=== PATIENT | female | born 1955 | race Caucasian/White ===

== ENCOUNTER 2018-05-09 16:19 | Emergency (ER) | payer BC ==
[2018-05-09 16:42] VITALS: BP 154/85
[2018-05-09] MEDS ORDERED: HYDROmorphone 1 MG/ML Syringe IVPUSH ONE ×2 (17:05→18:15)
[2018-05-09] MEDS ORDERED: Metoclopramide 10 MG/2 ML SDV IVPUSH ONE (17:06)
--- NOTE | 2018-05-09 17:07 | EDM.PDOC ---
ED HPI GENERAL MEDICAL PROBLEM - General Chief Complaint: Chest Pain Stated Complaint: CHEST PAIN Time Seen by Provider: 05/09/18 16:48 Source of Information: Reports: Patient, Family (son) History Limitations: Reports: No Limitations - History of Present Illness INITIAL COMMENTS - FREE TEXT/NARRATIVE: 63-year-old female presents to the ED with complaints of left precordial chest pain which is fairly sharp and stabbing but also has a pressure component. It seems to start just below her left breast and radiated up into her left neck as well as into her left shoulder and down her left arm. It is felt slightly in the upper aspect of her scapula as well. Patient reports that she's been having these pains off and on for 2 months but it's become much more severe over the last 48 hours. Denies any falls or injuries to her chest wall. She is a smoker 2 and half packs a day and is currently down to 1 pack per day. She does have a productive cough with occasional brownish sputum production. No fever or chills. It does hurt to breathe deeply at times. Denies any gastroesophageal reflux symptoms. Denies any burping or belching. Pain is sometimes worse if she lies on the left side. No known heart disease. Risk factors are that of smoking for greater than 40 years. Hypertension and hypercholesterolemia. Onset: Other (Has had left precordial chest pains off and on for 2 months worse the last 2 days and particularly this afternoon) Onset Date: 05/09/18 Duration: Hour(s):, Getting Worse Location: Reports: Neck ( as described in history of present illness rating up into the left lateral neck in the distribution of the sternocleidomastoid muscle ), Chest (Left precordial chest), Upper Extremity, Left Quality: Reports: Ache (Left shoulder), Pressure, Sharp, Stabbing Severity: Moderate Improves with: Reports: None (8 out of 10) Worsens with: Reports: Other (Certain movements make it worse deep breathing and coughing make it worse.) Context: Denies: Activity, Exercise, Lifting, Sick Contact, Trauma, Other Associated Symptoms: Reports: Chest Pain, Cough (Chronically as she is a cigarette smoker), cough w sputum, Shortness of Breath. Denies: No Other Symptoms (See history of present illness), Confusion, Diaphoresis, Fever/Chills , Headaches, Loss of Appetite, Nausea/Vomiting, Rash (Chronically), Seizure, Weakness Treatments MANAGER OF DEVELOPMENT: Reports: Other (see below) (None.) Left Chest Pain Score (Numeric/FACES): 5 - Related Data Allergies Allergy/AdvReac Type Severity Reaction Status Date / Time codeine Allergy Respiratory Verified 05/09/18 16:28 Distress Home Meds: Home Meds Albuterol [Proventil Neb Soln] 0.63 mg NEB Q4HRRT PRN 06/11/15 [History] Gabapentin [Neurontin] 600 mg PO TID 04/29/17 [History] traZODone 200 mg PO BEDTIME 04/29/17 [History] Acetaminophen [Tylenol] 650 mg PO Q6H PRN tablet 05/03/17 [Rx] Albuterol/Ipratropium [DuoNeb 3.0-0.5 MG/3 ML] 3 ml NEB QIDRT #1 box 05/03/17 [ Rx] DULoxetine [Cymbalta] 90 mg PO BEDTIME 05/09/18 [History] Diclofenac Sodium [Voltaren] 50 mg PO TID #24 tab.ec 05/09/18 [Rx] HYDROmorphone [Dilaudid] 10 mg PO DAILY PRN 05/09/18 [History] Omeprazole Magnesium [Prilosec Otc] 20 mg PO DAILY 05/09/18 [History] oxyCODONE HCl/Acetaminophen [Percocet 5-325 mg Tablet] 1 each PO Q4H PRN #12 tablet 05/09/18 [Rx] predniSONE [Deltasone] 20 mg PO ASDIRECTED #15 tablet 05/09/18 [Rx] Past Medical History HEENT History: Reports: Impaired Vision Other HEENT History: pt wears glasses Cardiovascular History: Reports: High Cholesterol Respiratory History: Reports: COPD (Not on oxygen), Pneumonia, Recurrent Gastrointestinal History: Reports: Cholelithiasis Genitourinary History: Reports: Diabetic Nephropathy 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 hand surgery Social & Family History - Family History Family Medical History: Noncontributory - Tobacco Use Smoking Status *Q: Current Every Day Smoker Years of Tobacco use: 45 Packs/Tins Daily: 1 - Caffeine Use Caffeine Use: Reports: Soda Other Caffeine Use: 3-4 diet pepsi's per day - Recreational Drug Use Recreational Drug Use: No - Living Situation & Occupation Living situation: Reports: Occupation: Employed ED ROS GENERAL - Review of Systems Review Of Systems: See Below Constitutional: Denies: Fever, Chills, Malaise, Weakness, Decreased Appetite HEENT: Reports: Glasses Respiratory: Reports: Shortness of Breath, Wheezing, Cough, Sputum. Denies: Pleuritic Chest Pain (Occasional wheezing. Has known COPD from cigarette smoking for greater than 40 years.), Hemoptysis (Enoc sputum usually.) Cardiovascular: Reports: Chest Pain (Left precordial chest pain heaviness with a sharp stabbing component currently rating up to the left side of her neck and into her left shoulder.), Blood Pressure Problem, Dyspnea on Exertion ( Chronically). Denies: Claudication, Edema, Lightheadedness, Orthopnea, Palpitations Endocrine: Reports: No Symptoms GI/Abdominal: Reports: Nausea (Nausea without any vomiting) : Reports: Frequency, Incontinence (Urge and stress components) Musculoskeletal: Reports: Joint Pain (Knees hips lower back and neck and shoulders at times from arthritic changes and rotator cuff disease in her shoulders) Skin: Reports: No Symptoms Neurological: Reports: Other (Peripheral neuropathy. Is on gabapentin) Psychiatric: Reports: Depression ED EXAM, GENERAL - Physical Exam Exam: See Below Exam Limited By: No Limitations General Appearance: Alert, Moderate Distress, Other (Smell strongly of cigarette smoke.) Eye Exam: Bilateral Eye: Normal Inspection Throat/Mouth: Normal Inspection, Normal Lips, Normal Oropharynx Head: Atraumatic, Normocephalic Neck: Normal Inspection, Full Range of Motion, Tender Lateral. No: Carotid Bruit, Lymphadenopathy (L) (Tender bilateral neck on palpation but range of motion is full), Lymphadenopathy (R) Respiratory/Chest: No Respiratory Distress, Decreased Breath Sounds, Wheezing ( Decreased breath sounds to the lower 25% of lung mobley bilaterally.). No: Lungs Clear, Normal Breath Sounds, Rales, Rhonchi ( Initial expiratory wheeze.) Cardiovascular: Regular Rate, Rhythm, No Edema, No Gallop, No Murmur. No: Normal Peripheral Pulses Peripheral Pulses: 1+: Posterior Tibial (L), Posterior Tibial (R), Dorsalis Pedis (L), Dorsalis Pedis (R), 2+: Carotid (L), Carotid (R) GI/Abdominal: Normal Bowel Sounds, Soft, Non-Tender, No Abnormal Bruit, No Mass , Pelvis Stable, Other (She has had evidence of the) Back Exam: Normal Inspection, Full Range of Motion. No: CVA Tenderness (L), CVA Tenderness (R) Extremities: Normal Inspection, No Pedal Edema, Other (Evidence of osteophytic changes in both knees and hips.) Neurological: Alert, Oriented, CN II-XII Intact, Normal Cognition Psychiatric: Anxious Skin Exam: Warm, Dry, Intact, No Rash, Other (Slightly grayish in color.) EKG INTERPRETATION EKG Date: 05/09/18 Time: 16:24 Rhythm: NSR Rate (Beats/Min): 80 [place]: Normal P-Wave: Enlarged (Consider left atrial hypertrophy) QRS: Other (RSR prime wave B1 normal variant.) ST-T: Other (T-wave is inverted in V1 to V3 with a) QT: Prolonged EKG Interpretation Comments: Abnormal ECG Course - Vital Signs Last Recorded V/S: Last Vital Signs Temp 36.4 C 05/09/18 16:23 Pulse 77 05/09/18 16:23 Resp 15 05/09/18 16:23 BP 154/85 H 05/09/18 16:23 Pulse Ox 98 05/09/18 16:23 - Orders/Labs/Meds Orders: Active Orders 24 hr Category Date Time Status EKG 12 Lead [EKG Documentation Completion] [RC] STAT Care 05/09/18 17:08 Active Chest 1V Frontal [CR] Stat Exams 05/09/18 17:03 Taken Labs: Laboratory Tests 05/09/18 05/09/18 05/09/18 Range/Units 16:30 16:30 16:30 WBC 7.27 (3.98-10.04) K/mm3 RBC 4.72 (3.98-5.22) M/mm3 Hgb 14.8 (11.2-15.7) gm/L Hct 43.9 (34.1-44.9) % MCV 93.0 (79.4-94.8) fl MCH 31.4 (25.6-32.2) pg MCHC 33.7 (32.2-35.5) g/dl RDW Std Deviation 47.6 H (36.4-46.3) fL Plt Count 256 (182-369) K/mm3 MPV 9.2 L (9.4-12.3) fl Neutrophils % (Manual) 69 H (40-60) % Band Neutrophils % 0 (0-10) % Lymphocytes % (Manual) 29 (20-40) % Atypical Lymphs % 0 % Monocytes % (Manual) 1 L (2-10) % Eosinophils % (Manual) 1 (0.7-5.8) % Basophils % (Manual) 0 L (0.1-1.2) Platelet Estimate Adequate RBC Morph Comment Normal ESR (0-20) mm/hr PT 9.9 (9.5-12.1) SECONDS INR < 0.93 APTT 27 (24-31) SECONDS Sodium 142 (136-145) mEq/L Potassium 3.4 L (3.5-5.1) mEq/L Chloride 106 (98-107) mEq/L Carbon Dioxide 27 (21-32) mEq/L Anion Gap 12.4 (5-15) BUN 12 (7-18) mg/dL Creatinine 0.9 (0.55-1.02) mg/dL Est Cr Clr Drug Dosing 54.30 mL/min Estimated GFR (MDRD) > 60 (>60) mL/min BUN/Creatinine Ratio 13.3 L (14-18) Glucose 113 (80-115) mg/dL Calcium 9.1 (8.5-10.1) mg/dL Magnesium 2.3 (1.8-2.4) mg/dl Total Bilirubin 0.3 (0.2-1.0) mg/dL AST 13 L (15-37) U/L ALT 18 (14-59) U/L Alkaline Phosphatase 111 (46-116) U/L CK-MB (CK-2) 0.5 (0-3.6) ng/ml Troponin I < 0.017 (0.00-0.056) ng/mL C-Reactive Protein < 0.2 (<1.0) mg/dL NT-Pro-B Natriuret Pep (0-125) pg/mL Total Protein 7.0 (6.4-8.2) g/dl Albumin 3.3 L (3.4-5.0) g/dl Globulin 3.7 gm/dL Albumin/Globulin Ratio 0.9 L (1-2) 05/09/18 05/09/18 Range/Units 16:30 16:30 WBC (3.98-10.04) K/mm3 RBC (3.98-5.22) M/mm3 Hgb (11.2-15.7) gm/L Hct (34.1-44.9) % MCV (79.4-94.8) fl MCH (25.6-32.2) pg MCHC (32.2-35.5) g/dl RDW Std Deviation (36.4-46.3) fL Plt Count (182-369) K/mm3 MPV (9.4-12.3) fl Neutrophils % (Manual) (40-60) % Band Neutrophils % (0-10) % Lymphocytes % (Manual) (20-40) % Atypical Lymphs % % Monocytes % (Manual) (2-10) % Eosinophils % (Manual) (0.7-5.8) % Basophils % (Manual) (0.1-1.2) Platelet Estimate RBC Morph Comment ESR 25 H (0-20) mm/hr PT (9.5-12.1) SECONDS INR APTT (24-31) SECONDS Sodium (136-145) mEq/L Potassium (3.5-5.1) mEq/L Chloride (98-107) mEq/L Carbon Dioxide (21-32) mEq/L Anion Gap (5-15) BUN (7-18) mg/dL Creatinine (0.55-1.02) mg/dL Est Cr Clr Drug Dosing mL/min Estimated GFR (MDRD) (>60) mL/min BUN/Creatinine Ratio (14-18) Glucose (80-115) mg/dL Calcium (8.5-10.1) mg/dL Magnesium (1.8-2.4) mg/dl Total Bilirubin (0.2-1.0) mg/dL AST (15-37) U/L ALT (14-59) U/L Alkaline Phosphatase (46-116) U/L CK-MB (CK-2) (0-3.6) ng/ml Troponin I (0.00-0.056) ng/mL C-Reactive Protein (<1.0) mg/dL NT-Pro-B Natriuret Pep 208 H (0-125) pg/mL Total Protein (6.4-8.2) g/dl Albumin (3.4-5.0) g/dl Globulin gm/dL Albumin/Globulin Ratio (1-2) Meds: Medications Discontinued Medications Generic Name Dose Route Start Last Admin Trade Name Freq PRN Reason Stop Dose Admin Hydromorphone HCl 0.5 mg 05/09/18 17:05 05/09/18 17:21 Dilaudid IVPUSH 05/09/18 17:06 0.5 mg ONETIME ONE Administration Hydromorphone HCl 0.5 mg 05/09/18 18:15 05/09/18 18:21 Dilaudid IVPUSH 05/09/18 18:16 0.5 mg ONETIME ONE Administration Dextrose/Sodium Chloride 1,000 mls @ 500 mls/hr 05/09/18 17:15 05/09/18 17:21 Dextrose 5%-Normal Saline IV 500 mls/hr ASDIRECTED MARYLOU Administration Ketorolac Tromethamine 30 mg 05/09/18 17:15 05/09/18 17:21 Toradol IVPUSH 30 mg ONETIME MARYLOU Administration Metoclopramide HCl 5 mg 05/09/18 17:06 05/09/18 17:21 Reglan IVPUSH 05/09/18 17:07 5 mg ONETIME ONE Administration - Radiology Interpretation Free Text/Narrative:: 63-year-old female presents to the ED with diffuse anterior left chest pain off -and-on for 2 months but much worse the last 48 hours and particularly today. Pain is described as a pressure sensation as well as a sharp stabbing component. It is worsened slightly by deep breathing and coughing. Patient has multiple risk factors for coronary disease with cigarette smoking and obesity hypertension and elevated cholesterol. However on examination she has excruciating pain to palpation midclavicular line of ribs 2-6 particularly fourth and fifth ribs. She'll therefore appears to have a periostitis likely due to osteoporosis. Slight pain on the right side as well ribs 3,4 and 5. ECG is showing sinus rhythm at 80 per minute with no signs of ischemia. There is nonspecific T-wave inversion in V1 and V3 leads only. Pain clinically is chest wall in origin. Plan 1 view chest x-ray. Routine labs to include cardiac markers. She will be given Toradol 30 mg IV with Dilaudid 0.5 mg IV and Reglan 5 mg IV for acute pain relief. - Re-Assessments/Exams Free Text/Narrative Re-Assessment/Exam: 05/09/18 18:16 patient is still having some left precordial chest pain. Will repeat Dilaudid 0.5 mg IV for pain relief. The chest x-ray reveals mildly hyperinflated lung mobley. There is some mild fibrosis in both lower lung mobley but no accentuation of the vascular pattern. Cardiac silhouette is within normal limits. 05/09/18 18:20 Labs reveal a normal white count at 7.27. Differential is 69% neutrophils no bands. Hemoglobin is 14.8 with hematocrit of 43.9. Platelet count is 256,000. PT is 9.9 with an INR of less than 0.93. PTT is 27. Sodium is 142. Potassium slightly low at 3.4. Chloride is 106 with a bicarbonate of 27. Anion gap is 12.4. GFR is greater than 60. Glucose is 113 calcium is 9.1. Magnesium 2.3 with a bilirubin of 0.3. Liver function is otherwise normal. CK- MB fraction is 0.5 with a troponin I of less than 0.017. C-reactive protein is less than 0.2. BNP is 208. Total protein is 7.0. Albumin fraction 3.3 slightly low. 05/09/18 19:00: Patient was reassured that her chest pain is noncardiac in origin and clearly is chest wall in origin. Pain is manageable at this point time. I`m going to her home on Voltaren 50 mg 3 times daily for 8 days and prednisone 20 mg twice a day for 5 days and then once daily in the morning for another 5 days to reduce pain and inflammation. I will also send her home with a few Percocet tabs 5/325 mg one tablet every 4-6 hours necessary for pain relief 12 tabs. She appears to be quite osteopenic. I've suggested that she have a DEXA scan ordered by her primary care physician. Perhaps biphosphonate addition to treatment plan may help alleviate some of her chest wall pain. Departure - Departure Time of Disposition: 19:13 Disposition: Home, Self-Care 01 Reason for Transfer *Q: Other Condition: Fair Clinical Impression: Non-cardiac chest pain, Anterior chest wall pain Osteopenia Qualifiers: Osteopenia location: unspecified Qualified Code(s): M85.80 - Other specified disorders of bone density and structure, unspecified site Prescriptions: Diclofenac Sodium [Voltaren] 50 mg PO TID #24 tab.ec oxyCODONE HCl/Acetaminophen [Percocet 5-325 mg Tablet] 1 each PO Q4H PRN #12 tablet PRN Reason: pain relief. predniSONE [Deltasone] 20 mg PO ASDIRECTED #15 tablet Instructions: Chest Wall Pain, [id number], Nonspecific Chest Pain, Easy-to- Read Referrals: Alon Stewart MD [Primary Care Provider] - Forms: ED Department Discharge Additional Instructions: Evaluation the emergency room today in regards to increased left anterior chest pain is rating up into the left side of your neck and down the left shoulder and arm. Pain is been present off and on for 2 months but much worse last 2 days and particularly today. Finacea reveals marked inflammation of the lining around the ribs from ribs 2-6 on the left side of your chest in the midclavicular line. There is milder pain on the right side also in ribs 2, 3 and 4 and 5. Chest x-ray reveals no abnormalities of the underlying lungs and heart is shadow is normal. All the lab tests were negative for any heart related illness and no blood clot in the lung. Pain is thus not related to heart. Pain is coming from the chest wall itself. This most often occurs when the calcium is been removed from the ribs as part of osteoporosis leaving the lining of the rib called the periosteum supposed. It contains all the nerve endings and is the source of your current pain. Minutes to try and reduce the inflammation in the ribs. In the ED were treated with intravenous Dilaudid 0.5 mg with Toradol 30 mg IV. Treatment at home is to take Deltasone 20 mg with breakfast and supper for 5 days starting tomorrow morning and then 1 tablet in the morning only for another 5 days. Second anti-inflammatories called Voltaren 50 mg 3 times daily for the next 8 days to reduce pain and inflammation. Kinsey tomorrow morning with breakfast. Pain medication is Percocet tablets 5/ 325 mg one tablet every 4 hours as needed for pain relief until the anti- inflammatories begin to work well which is usually 1-1/2-2 days. Suggest follow- up with your primary care physician in 10 days or so and have a workup for osteopenia/osteoporosis carried out. - My Orders Last 24 Hours: My Active Orders 05/09/18 17:03 Chest 1V Frontal [CR] Stat 05/09/18 17:08 EKG 12 Lead [EKG Documentation Completion] [RC] STAT - Assessment/Plan Last 24 Hours: My Active Orders 05/09/18 17:03 Chest 1V Frontal [CR] Stat 05/09/18 17:08 EKG 12 Lead [EKG Documentation Completion] [RC] STAT
[2018-05-09] MEDS ORDERED: Ketorolac 30 MG/ML SDV IVPUSH SCH (17:15)
[2018-05-09] MEDS ORDERED: Dextrose 5%-0.9% NaCl 1,000 ML IV SCH (17:15)
--- NOTE | 2018-05-10 06:47 | CR ---
Chest: Portable view of the chest was obtained. Comparison: Prior chest x-ray of 05/02/17. Heart size at the upper limits of normal. Upper mediastinum is normal. Electric stimulating wires are seen within the cervical spine. Lungs are clear with no acute parenchymal change. Patient: 1. Findings as noted above. Nothing acute is appreciated on portable chest x-ray. Diagnostic code #2
== END 2018-05-09 19:27 | disposition home or self-care (01) ==
LOC: JD.ED 16:19
DX: R07.2 Precordial pain (principal); M85.80 Other specified disorders of bone density and structure, unspecified site; E78.00 Pure hypercholesterolemia, unspecified; J44.9 Chronic obstructive pulmonary disease, unspecified; E11.21 Type 2 diabetes mellitus with diabetic nephropathy; F32.9 Major depressive disorder, single episode, unspecified; F17.210 Nicotine dependence, cigarettes, uncomplicated; Z88.5 Allergy status to narcotic agent; Z79.899 Other long term (current) drug therapy
CPT/HCPCS: 36415; 71045; 80053; 82553; 83735; 83880; 84484; 85007; 85027; 85610; 85652; 85730; 86140; 93005; 96361; 96374; 96375; 96376; 99285; J1170; J1885; J2765; J7042; 93010

== ENCOUNTER 2018-09-26 14:52 | Emergency (ER) | payer BC ==
[2018-09-26 15:07] VITALS: BP 150/78
[2018-09-26] MEDS ORDERED: Sodium Chloride 0.9% 10 ML Syringe FLUSH PRN (15:12)
--- NOTE | 2018-09-26 15:40 | CT ---
Head CT Technique: Multiple axial sections through the brain were obtained. Intravenous contrast was not utilized. Comparison: No prior intracranial imaging. Findings: Ventricles along with basal cisterns and sulci over the convexities appear within normal limits for the patient's age. No abnormal parenchymal densities are seen. No evidence of intracranial hemorrhage. No midline shift or mass effect is seen. 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 This is believed to be benign and therefore incidental. Bone window settings were reviewed which shows no acute calvarial abnormality. Slight mucosal thickening is noted within the left ethmoid sinus and right maxillary sinus which is believed to be incidental. Mastoid sinuses are clear. Impression: 1. Minimal sinus findings which are believed to be incidental. Rim calcified pineal cyst also felt to be incidental. 2. Nothing acute is appreciated on noncontrast head CT exam. Diagnostic code #2
[2018-09-26] MEDS ORDERED: HYDROmorphone 0.5 MG/0.5 ML Syringe IVPUSH ONE (17:00)
--- NOTE | 2018-09-26 18:31 | EDM.PDOC ---
ED HPI GENERAL MEDICAL PROBLEM - General Chief Complaint: Neurological Problem Stated Complaint: HEADACHE,CONFUSED,AND LEANING TO LEFT Time Seen by Provider: 09/26/18 15:04 Source of Information: Reports: Patient, Family History Limitations: Reports: No Limitations - History of Present Illness INITIAL COMMENTS - FREE TEXT/NARRATIVE: The patient presents with balance problems and left sided weakness. The patient 's said that this all started 2 months ago. She developed some double vision and was seen by an opthamologist Dr Brandon in [place] and he ordered a CT of her head with and without contrast. There was something seen on her contrasted CT. She had a 4.5mm atenuating lesion in the brain stem. The patient was to follow up with neurology. She then has been having more weakness and balance issues over the last couple of weeks. She then had trouble walking to the bathroom last night and today she went to work and it progressed where now she cannot walk on her own and she has moderate left sided weakness. She also has trouble finding her words but no slurred speech. She has no fever, chills, cough, congestion, runny nose, chest pain, shortness of breath, abdominal pain, nausea or vomiting. She also has a headache. Onset: Gradual Duration: Day(s): Location: Reports: Head Severity: Moderate Improves with: Reports: None Worsens with: Reports: None Associated Symptoms: Reports: Headaches. Denies: Chest Pain, Cough, Fever/ Chills, Nausea/Vomiting, Shortness of Breath Headache Pain Score (Numeric/FACES): 5 - Related Data Allergies Allergy/AdvReac Type Severity Reaction Status Date / Time codeine Allergy Respiratory Verified 05/09/18 16:28 Distress Home Meds: Home Meds Albuterol [Proventil Neb Soln] 0.63 mg NEB Q4HRRT PRN 06/11/15 [History] Gabapentin [Neurontin] 600 mg PO TID 04/29/17 [History] traZODone 200 mg PO BEDTIME 04/29/17 [History] Acetaminophen [Tylenol] 650 mg PO Q6H PRN tablet 05/03/17 [Rx] Albuterol/Ipratropium [DuoNeb 3.0-0.5 MG/3 ML] 3 ml NEB QIDRT #1 box 05/03/17 [ Rx] DULoxetine [Cymbalta] 90 mg PO BEDTIME 05/09/18 [History] Diclofenac Sodium [Voltaren] 50 mg PO TID #24 tab.ec 05/09/18 [Rx] HYDROmorphone [Dilaudid] 10 mg PO DAILY PRN 05/09/18 [History] Omeprazole Magnesium [Prilosec Otc] 20 mg PO DAILY 05/09/18 [History] oxyCODONE HCl/Acetaminophen [Percocet 5-325 mg Tablet] 1 each PO Q4H PRN #12 tablet 05/09/18 [Rx] predniSONE [Deltasone] 20 mg PO ASDIRECTED #15 tablet 05/09/18 [Rx] Past Medical History HEENT History: Reports: Impaired Vision Other HEENT History: pt wears glasses Cardiovascular History: Reports: High Cholesterol Respiratory History: Reports: COPD, Pneumonia, Recurrent Gastrointestinal History: Reports: Cholelithiasis Genitourinary History: Reports: Diabetic Nephropathy SUPERINTENDENT MEASUREMENT History: Reports: Musculoskeletal History: Reports: Osteoarthritis Psychiatric History: Reports: Depression Endocrine/Metabolic History: Reports: Obesity/BMI 30+ - Infectious Disease History Infectious Disease History: Reports: Influenza - Past Surgical History HEENT Surgical History: Reports: Cataract Surgery, Tonsillectomy GI Surgical History: Reports: Cholecystectomy Female Surgical History: Reports: Hysterectomy, Salpingo-Oophorectomy Musculoskeletal Surgical History: Reports: Ganglion Cyst, Other (See Below) Other Musculoskeletal Surgeries/Procedures:: rt. hand surgery Social & Family History - Family History Family Medical History: Noncontributory - Tobacco Use Smoking Status *Q: Current Every Day Smoker Years of Tobacco use: 45 Packs/Tins Daily: 0.5 - Caffeine Use Caffeine Use: Reports: Soda Other Caffeine Use: 3-4 diet pepsi's per day - Recreational Drug Use Recreational Drug Use: No - Living Situation & Occupation Living situation: Reports: Occupation: Employed ED ROS GENERAL - Review of Systems Review Of Systems: See Below Constitutional: Reports: No Symptoms HEENT: Reports: No Symptoms Respiratory: Reports: No Symptoms Cardiovascular: Reports: No Symptoms Endocrine: Reports: No Symptoms GI/Abdominal: Reports: No Symptoms : Reports: No Symptoms Musculoskeletal: Reports: No Symptoms Skin: Reports: No Symptoms Neurological: Reports: Headache, Numbness, Weakness ED EXAM, NEURO - Physical Exam Exam: See Below Exam Limited By: No Limitations General Appearance: Alert, No Apparent Distress Ears: Normal External Exam Nose: Normal Inspection Head Exam: Atraumatic, Normocephalic Neck: Normal Inspection Respiratory/Chest: No Respiratory Distress, Lungs Clear, Normal Breath Sounds Cardiovascular: Regular Rate, Rhythm, No Edema, No Murmur GI/Abdominal: Soft, Non-Tender, No Organomegaly, No Mass Neurological: Other (Moderate weakness to her left arm and leg with abnormal finger to nose.) EKG INTERPRETATION EKG Date: 09/26/18 Time: 15:25 Rhythm: NSR Rate (Beats/Min): 70 [place]: Normal P-Wave: Present QRS: Normal ST-T: Normal QT: Normal Course - Vital Signs Last Recorded V/S: Last Vital Signs Temp 98.6 F 09/26/18 15:02 Pulse 97 09/26/18 15:02 Resp 16 09/26/18 15:02 BP 150/78 H 09/26/18 15:02 Pulse Ox 97 09/26/18 15:02 - Orders/Labs/Meds Orders: Active Orders 24 hr Category Date Time Status Cardiac Monitoring [RC] . DIRECTED Care 09/26/18 15:12 Active EKG Documentation Completion [RC] STAT Care 09/26/18 15:12 Active Peripheral IV Care [RC] . DIRECTED Care 09/26/18 15:12 Active Sodium Chloride 0.9% [Saline Flush] Med 09/26/18 15:12 Active 10 ml FLUSH ASDIRECTED PRN Peripheral IV Insertion Adult [OM.PC] Stat Oth 09/26/18 15:12 Ordered Medication Orders Sodium Chloride (Saline Flush) 10 ml FLUSH ASDIRECTED PRN PRN Reason: Keep Vein Open Last Admin: 09/26/18 17:33 Dose: 10 ml Labs: Laboratory Tests 09/26/18 09/26/18 09/26/18 Range/Units 15:10 15:10 15:10 WBC 6.53 (3.98-10.04) K/mm3 RBC 4.11 (3.98-5.22) M/mm3 Hgb 13.3 D (11.2-15.7) gm/L Hct 39.7 (34.1-44.9) % MCV 96.6 H D (79.4-94.8) fl MCH 32.4 H (25.6-32.2) pg MCHC 33.5 (32.2-35.5) g/dl RDW Std Deviation 47.5 H (36.4-46.3) fL Plt Count 254 (182-369) K/mm3 MPV 8.9 L (9.4-12.3) fl Neut % (Auto) 67.0 (34.0-71.1) % Lymph % (Auto) 25.1 (19.3-51.7) % [place] % (Auto) 6.9 (4.7-12.5) % Eos % (Auto) 0.2 L (0.7-5.8) Baso % (Auto) 0.5 (0.1-1.2) % Neut # (Auto) 4.38 (1.56-6.13) K/mm3 Lymph # (Auto) 1.64 (1.18-3.74) K/mm3 [place] # (Auto) 0.45 H (0.24-0.36) K/mm3 Eos # (Auto) 0.01 L (0.04-0.36) K/mm3 Baso # (Auto) 0.03 (0.01-0.08) K/mm3 PT 9.8 (9.7-12.0) SECONDS INR < 0.93 APTT 25 (22-31) SECONDS Sodium 145 (136-145) mEq/L Potassium 3.7 (3.5-5.1) mEq/L Chloride 108 H (98-107) mEq/L Carbon Dioxide 28 (21-32) mEq/L Anion Gap 12.7 (5-15) BUN 19 H (7-18) mg/dL Creatinine 1.0 (0.55-1.02) mg/dL Est Cr Clr Drug Dosing 48.87 mL/min Estimated GFR (MDRD) 56 (>60) mL/min BUN/Creatinine Ratio 19.0 H (14-18) Glucose 132 H (80-115) mg/dL Calcium 8.7 (8.5-10.1) mg/dL Total Bilirubin 0.2 (0.2-1.0) mg/dL AST 10 L (15-37) U/L ALT 17 (14-59) U/L Alkaline Phosphatase 101 (46-116) U/L Troponin I < 0.017 (0.00-0.056) ng/mL Total Protein 6.5 (6.4-8.2) g/dl Albumin 3.2 L (3.4-5.0) g/dl Globulin 3.3 gm/dL Albumin/Globulin Ratio 1.0 (1-2) Meds: Medications Generic Name Dose Route Start Last Admin Trade Name Anna PRN Reason Stop Dose Admin Sodium Chloride 10 ml 09/26/18 15:12 09/26/18 17:33 Saline Flush FLUSH 10 ml ASDIRECTED PRN Administration Keep Vein Open Discontinued Medications Generic Name Dose Route Start Last Admin Trade Name Freq PRN Reason Stop Dose Admin Hydromorphone HCl 0.5 mg 09/26/18 17:00 09/26/18 17:33 Dilaudid IVPUSH 09/26/18 17:01 0.5 mg ONETIME ONE Administration - Re-Assessments/Exams Free Text/Narrative Re-Assessment/Exam: 09/26/18 18:33 A stroke alert was called. I ordered an IV saline lock, EKG, CT of her head and labs. Her EKG shows a NSR with no acute chagnes. Her CBC and CMP look good. Her troponin is negative. Her CT shows nothing acute. She has a neuro deficit now. This could be a tumor or stroke. She has a nerve stimulator so we cannot do an MRI. I feel she needs to go to [facility]. I called [facility] and talked with Dr Lyons the neurologist senior controller and Dr Mandujano the hospitalist. They did accept her. She will be going by ambulance. Departure - Departure Time of Disposition: 18:40 Disposition: DC/Tfer to Acute Hospital 02 Condition: Fair Clinical Impression: Double vision Headache Qualifiers: Headache type: unspecified Headache chronicity pattern: acute headache Intractability: not intractable Qualified Code(s): R51 - Headache CVA (cerebral vascular accident) Qualifiers: CVA mechanism: unspecified Qualified Code(s): I63.9 - Cerebral infarction, unspecified - Discharge Information Referrals: Alon Stewart MD [Primary Care Provider] - - My Orders Last 24 Hours: My Active Orders 09/26/18 15:12 Cardiac Monitoring [RC] . DIRECTED EKG Documentation Completion [RC] STAT Peripheral IV Care [RC] . DIRECTED Sodium Chloride 0.9% [Saline Flush] 10 ml FLUSH ASDIRECTED PRN Peripheral IV Insertion Adult [OM.PC] Stat - Assessment/Plan Last 24 Hours: My Active Orders 09/26/18 15:12 Cardiac Monitoring [RC] . DIRECTED EKG Documentation Completion [RC] STAT Peripheral IV Care [RC] . DIRECTED Sodium Chloride 0.9% [Saline Flush] 10 ml FLUSH ASDIRECTED PRN Peripheral IV Insertion Adult [OM.PC] Stat
== END 2018-09-26 19:13 ==
LOC: JD.ED 14:52
DX: I63.9 Cerebral infarction, unspecified (principal); H53.2 Diplopia; K21.9 Gastro-esophageal reflux disease without esophagitis; E66.9 Obesity, unspecified; E11.21 Type 2 diabetes mellitus with diabetic nephropathy; M19.90 Unspecified osteoarthritis, unspecified site; Z68.30 Body mass index [BMI] 30.0-30.9, adult; F17.210 Nicotine dependence, cigarettes, uncomplicated; Z88.5 Allergy status to narcotic agent; Z90.710 Acquired absence of both cervix and uterus; Z98.890 Other specified postprocedural states; Z79.899 Other long term (current) drug therapy; Z79.51 Long term (current) use of inhaled steroids
CPT/HCPCS: 36415; 70450; 80053; 84484; 85025; 85610; 85730; 93005; 96374; 99285; J1170

== ENCOUNTER 2018-10-23 17:17 | Emergency (ER) | payer BC ==
[2018-10-23 17:33] VITALS: BP 146/84; PULSE 80
[2018-10-23] MEDS ORDERED: Sodium Chloride 0.9% 10 ML Syringe FLUSH PRN (17:34)
--- NOTE | 2018-10-23 17:37 | EDM.PDOC ---
ED HPI GENERAL MEDICAL PROBLEM - General Chief Complaint: Neuro Symptoms/Deficits Stated Complaint: POSS STROKE Time Seen by Provider: 10/23/18 17:34 Source of Information: Reports: Patient, RN Notes Reviewed - History of Present Illness INITIAL COMMENTS - FREE TEXT/NARRATIVE: 63-year-old female has been brought here by with symptoms of acute stroke. She does have history into her September 26 about 3-1/2 weeks ago and then a subsequent stroke about 5 days later. She has been getting physical therapy and doing somewhat okay. Her previous stroke has affected her left arm and leg and also balance and speech difficulty. Patient states this was a "cerebellar stroke. She is on Plavix blood thinner in addition to other medications. Her states that she was fine this past morning and also was fine for 3:00 "I appointment. Then about 45-60 minutes ago" she is having word finding difficulty. No facial droop. She has no headache or chest pain. No recent fall or injury. - Related Data Allergies Allergy/AdvReac Type Severity Reaction Status Date / Time codeine Allergy Respiratory Verified 10/23/18 17:33 Distress Home Meds: Home Meds Albuterol [Proventil Neb Soln] 0.63 mg NEB Q4HRRT PRN 06/11/15 [History] Gabapentin [Neurontin] 600 mg PO TID 04/29/17 [History] traZODone 200 mg PO BEDTIME 04/29/17 [History] Acetaminophen [Tylenol] 650 mg PO Q6H PRN tablet 05/03/17 [Rx] Albuterol/Ipratropium [DuoNeb 3.0-0.5 MG/3 ML] 3 ml NEB QIDRT #1 box 05/03/17 [ Rx] DULoxetine [Cymbalta] 90 mg PO BEDTIME 05/09/18 [History] HYDROmorphone [Dilaudid] 10 mg PO DAILY PRN 05/09/18 [History] Omeprazole Magnesium [Prilosec Otc] 20 mg PO DAILY 05/09/18 [History] Aspirin 381 mg PO DAILY 10/23/18 [History] Clopidogrel [Plavix] 75 mg PO DAILY 10/23/18 [History] Past Medical History HEENT History: Reports: Impaired Vision Other HEENT History: pt wears glasses Cardiovascular History: Reports: High Cholesterol Respiratory History: Reports: COPD, Pneumonia, Recurrent Gastrointestinal History: Reports: Cholelithiasis Genitourinary History: Reports: Diabetic Nephropathy 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 hand surgery Social & Family History - Family History Family Medical History: Noncontributory - Caffeine Use Caffeine Use: Reports: Soda Other Caffeine Use: 3-4 diet pepsi's per day - Living Situation & Occupation Living situation: Reports: Occupation: Employed ED ROS GENERAL - Review of Systems Review Of Systems: See Below Constitutional: Denies: Fever, Chills, Diaphoresis HEENT: Denies: Throat Pain Respiratory: Denies: Shortness of Breath Cardiovascular: Denies: Chest Pain GI/Abdominal: Denies: Abdominal Pain, Nausea, Vomiting Musculoskeletal: Denies: Neck Pain, Back Pain, Leg Pain Skin: Reports: No Symptoms Neurological: Reports: Dizziness, Trouble Speaking (Right arm and leg), Weakness , Other (No facial droop). Denies: Headache, Numbness, Tingling ED EXAM, NEURO - Physical Exam Exam: See Below General Appearance: Alert, Anxious, Moderate Distress Eye Exam: Bilateral Eye: EOMI, PERRL Throat/Mouth: Normal Inspection, Other (No facial droop) Head Exam: Atraumatic. No: Facial Swelling Neck: Supple, Full Range of Motion Respiratory/Chest: No Respiratory Distress, Lungs Clear, Normal Breath Sounds Cardiovascular: Regular Rate, Rhythm GI/Abdominal: Soft, Non-Tender Neurological: Alert, Oriented x 3, Ataxia (Right hand and arm with finger to nose testing), Other (Mild weakness right upper extremity and right lower extremity compared to left) Extremities: Normal Inspection. No: Leg Pain, Increased Warmth, Redness Skin Exam: Warm, Dry, Normal Color, No Rash EKG INTERPRETATION EKG Date: 10/23/18 Rhythm: NSR [place]: Normal P-Wave: Present QRS: Normal ST-T: Normal Course - Vital Signs Last Recorded V/S: Last Vital Signs Temp 98.2 F 10/23/18 17:28 Pulse 80 10/23/18 17:28 Resp 11 L 10/23/18 17:28 BP 146/84 H 10/23/18 17:28 Pulse Ox 96 10/23/18 17:28 - Orders/Labs/Meds Orders: Active Orders 24 hr Category Date Time Status EKG 12 Lead [EKG Documentation Completion] [RC] STAT Care 10/23/18 17:34 Active Peripheral IV Care [RC] . DIRECTED Care 10/23/18 17:35 Active Peripheral IV Insertion Adult [OM.PC] Stat Oth 10/23/18 17:35 Ordered Labs: Laboratory Tests 10/23/18 10/23/1818 Range/Units 17:55 17:55 17:57 WBC 7.23 (3.98-10.04) K/mm3 RBC 4.30 (3.98-5.22) M/mm3 Hgb 13.9 (11.2-15.7) gm/dl Hct 40.5 (34.1-44.9) % MCV 94.2 (79.4-94.8) fl MCH 32.3 H (25.6-32.2) pg MCHC 34.3 (32.2-35.5) g/dl RDW Std Deviation 44.5 (36.4-46.3) fL Plt Count 227 (182-369) K/mm3 MPV 9.1 L (9.4-12.3) fl Neut % (Auto) 66.6 (34.0-71.1) % Lymph % (Auto) 23.9 (19.3-51.7) % [place] % (Auto) 7.7 (4.7-12.5) % Eos % (Auto) 1.1 (0.7-5.8) Baso % (Auto) 0.4 (0.1-1.2) % Neut # (Auto) 4.81 (1.56-6.13) K/mm3 Lymph # (Auto) 1.73 (1.18-3.74) K/mm3 [place] # (Auto) 0.56 H (0.24-0.36) K/mm3 Eos # (Auto) 0.08 (0.04-0.36) K/mm3 Baso # (Auto) 0.03 (0.01-0.08) K/mm3 Sodium 139 (136-145) mEq/L Potassium 3.7 (3.5-5.1) mEq/L Chloride 103 (98-107) mEq/L Carbon Dioxide 26 (21-32) mEq/L Anion Gap 13.7 (5-15) BUN 28 H (7-18) mg/dL Creatinine 0.9 (0.55-1.02) mg/dL Est Cr Clr Drug Dosing TNP Estimated GFR (MDRD) > 60 (>60) mL/min BUN/Creatinine Ratio 31.1 H (14-18) Glucose 108 (80-115) mg/dL POC Glucose 102 (80-115) mg/dL Calcium 8.4 L (8.5-10.1) mg/dL Total Bilirubin 0.3 (0.2-1.0) mg/dL AST 18 (15-37) U/L ALT 31 (14-59) U/L Alkaline Phosphatase 117 H (46-116) U/L Total Protein 6.8 (6.4-8.2) g/dl Albumin 3.2 L (3.4-5.0) g/dl Globulin 3.6 gm/dL Albumin/Globulin Ratio 0.9 L (1-2) Meds: Medications Discontinued Medications Generic Name Dose Route Start Last Admin Trade Name Freq PRN Reason Stop Dose Admin Lorazepam 0.5 mg 10/23/18 18:08 10/23/18 18:20 Ativan IVPUSH 10/23/18 18:09 0.5 mg ONETIME ONE Administration Lorazepam Confirm 10/23/18 18:10 10/23/18 18:33 Ativan Administered 10/23/18 18:11 Not Given Dose 2 mg .ROUTE .STK-MED ONE Sodium Chloride 10 ml 10/23/18 17:34 10/23/18 18:33 Saline Flush FLUSH 10 ml ASDIRECTED PRN Administration Keep Vein Open - Re-Assessments/Exams Free Text/Narrative Re-Assessment/Exam: 10/23/18 18:20. This was called as a stroke alert on patient arrival to ED due to symptoms of speech difficulty right arm and leg weakness. She was immediately sent to CT for head CT. Lance did not show hemorrhage or other acute findings. She continued to have right-sided weakness, right-sided ataxia with [id number] testing and speech difficulty continued. Valente edgar was quickly mobilized for plan to transfer back to [facility] where she had her 2 prior admissions. I discussed this with Dr. Teran, Neurologist on-call. He does accept patient in transfer. He observes that the patient's stuttering speech pattern quite unusual for stroke. She does have associated word finding difficulty as well with very abnormal and difficulty speech pattern that continues. She does continue tohave the right-sided weakness and ataxia. He did suggest I offer thrombolytic therapy but make sure that she and her be aware of the risk. When I have described the risks benefits with them they both state that they do not want her to have thrombolytics at this time considering that she may get improvement of symptoms but she could also and up with intracerebral hemorrhage or even . [facility]ente edgar crew is here at this time about ready to leave for transfer. Symptoms remain unchanged from arrival. Vitals remained stable. Cardiac rhythm remain normal sinus rhythm with no ectopy. Departure - Departure Time of Disposition: 17:10 Disposition: DC/Tfer to Acute Hospital 02 Condition: Serious Clinical Impression: CVA (cerebral vascular accident) Qualifiers: CVA mechanism: unspecified Qualified Code(s): I63.9 - Cerebral infarction, unspecified - Discharge Information Referrals: Alon Stewart MD [Primary Care Provider] - Forms: ED Department Discharge - My Orders Last 24 Hours: My Active Orders 10/23/18 17:34 EKG 12 Lead [EKG Documentation Completion] [RC] STAT 10/23/18 17:35 Peripheral IV Care [RC] . DIRECTED Peripheral IV Insertion Adult [OM.PC] Stat - Assessment/Plan Last 24 Hours: My Active Orders 10/23/18 17:34 EKG 12 Lead [EKG Documentation Completion] [RC] STAT 10/23/18 17:35 Peripheral IV Care [RC] . DIRECTED Peripheral IV Insertion Adult [OM.PC] Stat
--- NOTE | 2018-10-23 17:56 | CT ---
Head CT Technique: Multiple axial sections through the brain were obtained. Intravenous contrast was not utilized. Comparison: Prior noncontrast head CT exam of 09/26/18. Findings: Ventricles along with basal cisterns and sulci over the convexities are within normal limits for the patient's age. No abnormal parenchymal densities are seen. No evidence of intracranial hemorrhage. No midline shift or mass effect is seen. 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 Bone window settings were reviewed which shows no acute calvarial abnormality. Slight mucosal thickening is noted within the right maxillary sinus which is due to pre-existing mild chronic sinusitis. Mastoid sinuses shows no acute findings. Impression: 1. 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 2. No acute intracranial abnormality is seen. Note: Please consider MRI for further evaluation of the patient's symptoms. Diagnostic code #2
[2018-10-23] MEDS ORDERED: LORazepam 2 MG/ML SDV IVPUSH ONE (18:08)
[2018-10-23] MEDS ORDERED: LORazepam 2 MG/ML SDV ONE (18:10)
== END 2018-10-23 18:30 ==
LOC: JD.ED 17:17
DX: I63.9 Cerebral infarction, unspecified (principal); F32.9 Major depressive disorder, single episode, unspecified; J44.9 Chronic obstructive pulmonary disease, unspecified; E66.9 Obesity, unspecified; M19.90 Unspecified osteoarthritis, unspecified site; E11.40 Type 2 diabetes mellitus with diabetic neuropathy, unspecified; E11.21 Type 2 diabetes mellitus with diabetic nephropathy; Z98.890 Other specified postprocedural states; Z90.710 Acquired absence of both cervix and uterus; Z90.722 Acquired absence of ovaries, bilateral; Z90.49 Acquired absence of other specified parts of digestive tract; Z68.30 Body mass index [BMI] 30.0-30.9, adult; Z88.5 Allergy status to narcotic agent; Z79.899 Other long term (current) drug therapy; Z79.51 Long term (current) use of inhaled steroids; Z79.82 Long term (current) use of aspirin
CPT/HCPCS: 36415; 70450; 80053; 82962; 85025; 93005; 96374; 99285; J2060; 93010; 99284

== ENCOUNTER 2020-04-20 21:33 | Emergency (ER) | payer BC ==
[2020-04-20 21:56] VITALS: BP 156/99; PULSE 80
[2020-04-20] MEDS ORDERED: HYDROmorphone 1 MG/ML Syringe IM ONE (21:56)
[2020-04-20] MEDS ORDERED: Dexamethasone 10 MG/ML SDV IM ONE (22:01)
--- NOTE | 2020-04-20 22:01 | EDM.PDOC ---
<ReneeTiera V - Last Filed: 04/20/20 22:39> ED HPI GENERAL MEDICAL PROBLEM - General Chief Complaint: Back Pain or Injury Stated Complaint: hip pain lower back Time Seen by Provider: 04/20/20 21:42 Source of Information: Reports: Patient, RN Notes Reviewed History Limitations: Reports: No Limitations - History of Present Illness INITIAL COMMENTS - FREE TEXT/NARRATIVE: Patient is a 65-year-old female who presents to the ED for her right-sided hip/lower back/leg pain. Patient notes that she has been working with Dr. Orozco and Dr. Smith for management of this, she has been trialed on Medrol Dosepak, baclofen, has had an MRI, that apparently shows disc issues at L5-S2. She was given 1 shot of Toradol today for management but it did not seem to help. Patient notes that this is about the fourth night where she has not slept much at all. She states that the pain starts at her right lower back/hip area and radiates down her leg, over her knee, and into the top of her foot. Patient notes that she does have fibromyalgia, and is on pain management in [place] as well. She was given Percocet 10/325 mg tablets, but states that these have not been helping much either. She has no fevers or chills, cough or shortness of breath, or any other sick-like symptoms, she denies any saddle anesthesia, urinary or bowel incontinence. Lower Back Pain Score (Numeric/FACES): 10 Right Hip Pain Score (Numeric/FACES): 10 - Related Data Allergies Allergy/AdvReac Type Severity Reaction Status Date / Time codeine Allergy Severe Respiratory Verified 04/20/20 21:56 Distress Home Meds: Home Meds Albuterol [Proventil Neb Soln] 0.63 mg NEB Q4HRRT PRN 06/11/15 [History] Gabapentin [Neurontin] 600 mg PO TID 04/29/17 [History] traZODone 200 mg PO BEDTIME 04/29/17 [History] DULoxetine [Cymbalta] 90 mg PO BEDTIME 05/09/18 [History] Aspirin 381 mg PO DAILY 10/23/18 [History] Acetaminophen 1,000 mg PO Q4HR PRN 04/20/20 [History] Albuterol Sulfate [Albuterol Sulfate HFA] 2 puff INH Q4HR PRN 04/20/20 [History] Albuterol/Ipratropium [DuoNeb 3.0-0.5 MG/3 ML] 3 ml NEB QIDRT PRN 04/20/20 [History] Budesonide/Formoterol [Symbicort 160-4.5 MCG] 2 puff INH BID PRN 04/20/20 [History] Cyanocobalamin (Vitamin B-12) [Vitamin B-12] 2 tab PO BEDTIME 04/20/20 [History] DULoxetine [Cymbalta] 120 mg PO BEDTIME 04/20/20 [History] Diclofenac Sodium [Voltaren 1% Gel] 4 g TOP Q6HR PRN 04/20/20 [History] Ferrous Sulfate [Iron] 325 mg PO DAILY 04/20/20 [History] Pantoprazole [ProTONIX] 40 mg PO DAILY 04/20/20 [History] Propranolol HCl [Propranolol HCl ER] 120 mg PO BEDTIME 04/20/20 [History] Rosuvastatin [Crestor] 20 mg PO BEDTIME 04/20/20 [History] Vortioxetine Hydrobromide [Trintellix] 10 mg PO DAILY 04/20/20 [History] oxyCODONE HCl/Acetaminophen [Percocet 10-325 mg Tablet] 1 tab PO Q6HR PRN 04/20/20 [History] traZODone HCl [Trazodone HCl] 100 mg PO BEDTIME 04/20/20 [History] Past Medical History HEENT History: Reports: Impaired Vision Other HEENT History: pt wears glasses Cardiovascular History: Reports: High Cholesterol Respiratory History: Reports: COPD, Pneumonia, Recurrent Gastrointestinal History: Reports: Cholelithiasis Genitourinary History: Reports: Diabetic Nephropathy SPANISH TRANSLATOR History: Reports: Musculoskeletal History: Reports: Osteoarthritis Neurological History: Reports: CVA Psychiatric History: Reports: Depression Endocrine/Metabolic History: Reports: Obesity/BMI 30+ - Infectious Disease History Infectious Disease History: Reports: Influenza - Past Surgical History HEENT Surgical History: Reports: Cataract Surgery, Tonsillectomy GI Surgical History: Reports: Cholecystectomy Female Surgical History: Reports: Hysterectomy, Salpingo-Oophorectomy Musculoskeletal Surgical History: Reports: Ganglion Cyst, Other (See Below) Other Musculoskeletal Surgeries/Procedures:: rt. hand surgery Social & Family History - Family History Family Medical History: No Pertinent Family History - Caffeine Use Caffeine Use: Reports: Soda Other Caffeine Use: 3-4 diet pepsi's per day - Living Situation & Occupation Living situation: Reports: Occupation: Employed ED ROS GENERAL - Review of Systems Review Of Systems: Comprehensive ROS is negative, except as noted in HPI. ED EXAM,LOWER BACK PAIN/INJURY - Physical Exam Exam: See Below Exam Limited By: No Limitations General Appearance: Alert, WD/WN, No Apparent Distress Respiratory/Chest: No Respiratory Distress, Lungs Clear, Normal Breath Sounds, No Accessory Muscle Use, Chest Non-Tender Cardiovascular: Normal Peripheral Pulses, Regular Rate, Rhythm, No Edema Extremities: Normal Inspection, Normal Capillary Refill, Limited Range of Motion Neurological: Alert, Normal Mood/Affect, Normal Dorsiflexion, Normal Plantar Flexion, No Motor/Sensory Deficits, Straight Leg Raise (R). No: Straight Leg Raise (L), Saddle Anesthesia Psychiatric: Normal Affect, Normal Mood Skin Exam: Warm, Dry, Intact, Normal Color, No Rash Course - Re-Assessments/Exams Free Text/Narrative Re-Assessment/Exam: 04/20/20 22:00 Patient presents to the ED for the evaluation of her right back pain/hip pain. I will give her 1 mg IM injection of Dilaudid and a 10 mg IM injection of dexamethasone for initial management. 04/20/20 22:39 Patient was reassessed at bedside, and states that her pain is not much better. I am fully aware that she is not opioid justin at this time, we will go ahead and repeat another dose of 1 mg IM Dilaudid for ongoing pain management. Departure - Departure Disposition: Home, Self-Care 01 Clinical Impression: Exacerbation of chronic back pain - Discharge Information Referrals: Alon Stewart MD [Primary Care Provider] - Forms: ED Department Discharge Additional Instructions: Return to the emergency room with any questions problems or worsening symptoms. Follow-up with your pain doctor tomorrow. Sepsis Event Note (ED) - Evaluation Sepsis Screening Result: No Definite Risk <Raymond Rhodes - Last Filed: 04/21/20 00:19> Course - Vital Signs Last Recorded V/S: Last Vital Signs Temp 36.4 C 04/20/20 21:42 Pulse 80 04/20/20 21:42 Resp 22 H 04/20/20 21:42 BP 156/99 H 04/20/20 21:42 Pulse Ox 97 04/20/20 21:42 - Orders/Labs/Meds Meds: Medications Discontinued Medications Generic Name Dose Route Start Last Admin Trade Name Anna HOWARD Reason Stop Dose Admin Dexamethasone 10 mg 04/20/20 22:01 04/20/20 22:11 Dexamethasone 10 Mg/Ml Sdv IM 04/20/20 22:02 10 mg ONETIME ONE Administration Hydromorphone HCl 1 mg 04/20/20 21:56 04/20/20 22:11 Hydromorphone 1 Mg/Ml Syringe IM 04/20/20 21:57 1 mg ONETIME ONE Administration Hydromorphone HCl 1 mg 04/20/20 22:39 04/20/20 23:03 Hydromorphone 1 Mg/Ml Syringe IVPUSH 04/20/20 22:40 1 mg ONETIME ONE Administration - Re-Assessments/Exams Free Text/Narrative Re-Assessment/Exam: 04/21/20 00:11 Doing much better at this time we will discharge home Departure - Departure Time of Disposition: 00:17 Sepsis Event Note (ED) - Focused Exam Vital Signs: Vital Signs Temp Pulse Resp BP Pulse Ox 04/20/20 21:42 36.4 C 80 22 H 156/99 H 97
[2020-04-20] MEDS ORDERED: HYDROmorphone 1 MG/ML Syringe IVPUSH ONE (22:39)
== END 2020-04-21 00:24 | disposition home or self-care (01) ==
LOC: JD.ED 21:33
DX: M54.5 Low back pain (principal); G89.29 Other chronic pain; E66.9 Obesity, unspecified; E78.00 Pure hypercholesterolemia, unspecified; E11.21 Type 2 diabetes mellitus with diabetic nephropathy; J44.9 Chronic obstructive pulmonary disease, unspecified; Z88.5 Allergy status to narcotic agent; Z79.82 Long term (current) use of aspirin; Z79.899 Other long term (current) drug therapy; Z68.36 Body mass index [BMI] 36.0-36.9, adult
CPT/HCPCS: 96372; 96374; 99283; J1100; J1170

== ENCOUNTER 2020-04-22 21:37 | Emergency (ER) | payer BC ==
[2020-04-22 22:02] VITALS: BP 167/101; PULSE 70
[2020-04-22] MEDS ORDERED: HYDROmorphone 1 MG/ML Syringe IVPUSH ONE (22:45)
[2020-04-22] MEDS ORDERED: Ondansetron 4 MG/2 ML SDV IVPUSH ONE (22:45)
[2020-04-22] MEDS ORDERED: Sodium Chloride 0.9% 1,000 ML IV ONE (22:45)
[2020-04-22] MEDS ORDERED: Gabapentin 300 MG Cap PO ONE (22:47)
--- NOTE | 2020-04-22 22:49 | EDM.PDOC ---
ED HPI GENERAL MEDICAL PROBLEM - General Chief Complaint: Back Pain or Injury Stated Complaint: LOWER BACK PAIN/RIGHT LEG PAIN Time Seen by Provider: 04/22/20 22:22 Source of Information: Reports: Patient, Family () History Limitations: Reports: No Limitations - History of Present Illness INITIAL COMMENTS - FREE TEXT/NARRATIVE: Mrs. Martinez is a pleasant 65-year-old woman who now presents to the ED stating that she has been experiencing lower right back pain that radiates down and involves her entire right lower extremity for the past 5 to 6 years, but that it is getting worse. She states that even the weight of the bedsheet on her leg is painful. She has not experienced any bowel or bladder incontinence. She states that prior work-ups have included an MRI, which apparently demonstrated an L5-S1 intervertebral disc bulge. She states that there is a plan to inject (radio ablate?) a nerve, and that a referral for the procedure has been sent to her pain national account manager, but she is waiting to hear back from them. She states that due to her pain, she has not been able to sleep for the past several days, and her also mentioned that her oral intake has been decreased, as well. The patient states that she fell a couple of months ago, which may have contributed to her current worsening symptoms, but she denies any injury since. Medical records indicate that the patient was seen in this ED for the same complaint just 2 nights ago, on 04/20/2020. She was given Dilaudid 2 mg IVP and dexamethasone 10 mg IM, before being discharged home with the re commendation that she follow-up with her pain national account manager. The patient tells me that she followed up with her PCP's RN and her Orthopedic Surgeon's RN, and that her PCP increased her pain medication, but that her pain national account manager then canceled that increase. She is currently prescribed Percocet 10/325, 1 tablet Q 6 hrs by her pain national account manager, who, the patient acknowledges, does not want that to be increased. Here in the ED tonight, the patient's initial BP is found to be elevated at 167/101, otherwise, she is hemodynamically stable, afebrile, saturating 99% on room air. Other than her chronic lower right back and right lower extremity pain, the patient denies having a recent fever, chills, sore throat, ear pain, nasal or sinus congestion, cough, dyspnea, chest pain, palpitations, nausea, vomiting, constipation, diarrhea, abdominal pain, urinary symptoms, recent weight gain or weight loss, recent bloody bowel movements or black bowel movements, recent joint aches, headaches, or rashes. The patient's PCP is Dr. Alon Stewart. Her Orthopedic Surgeon is Dr. Garret Smith. Her pain national account manager is Marifer Grayson NP, at [facility]. Her Psychiatrist is Dr. Shannan Gardner. She does not recall the name of her pulmonary midlevel. She has not received an influenza vaccine this season, and declined to get one here in the ED. Right Leg Pain Score (Numeric/FACES): 10 - Related Data Allergies Allergy/AdvReac Type Severity Reaction Status Date / Time codeine Allergy Severe Respiratory Verified 04/22/20 22:01 Distress Home Meds: Home Meds Albuterol [Proventil Neb Soln] 0.63 mg NEB Q4HRRT PRN 06/11/15 [History] Gabapentin [Neurontin] 600 mg PO TID 04/29/17 [History] traZODone 200 mg PO BEDTIME 04/29/17 [History] DULoxetine [Cymbalta] 90 mg PO BEDTIME 05/09/18 [History] Aspirin 381 mg PO DAILY 10/23/18 [History] Acetaminophen 1,000 mg PO Q4HR PRN 04/20/20 [History] Albuterol Sulfate [Albuterol Sulfate HFA] 2 puff INH Q4HR PRN 04/20/20 [History] Albuterol/Ipratropium [DuoNeb 3.0-0.5 MG/3 ML] 3 ml NEB QIDRT PRN 04/20/20 [History] Budesonide/Formoterol [Symbicort 160-4.5 MCG] 2 puff INH BID PRN 04/20/20 [History] Cyanocobalamin (Vitamin B-12) [Vitamin B-12] 2 tab PO BEDTIME 04/20/20 [History] DULoxetine [Cymbalta] 120 mg PO BEDTIME 04/20/20 [History] Diclofenac Sodium [Voltaren 1% Gel] 4 g TOP Q6HR PRN 04/20/20 [History] Ferrous Sulfate [Iron] 325 mg PO DAILY 04/20/20 [History] Pantoprazole [ProTONIX] 40 mg PO DAILY 04/20/20 [History] Propranolol HCl [Propranolol HCl ER] 120 mg PO BEDTIME 04/20/20 [History] Rosuvastatin [Crestor] 20 mg PO BEDTIME 04/20/20 [History] Vortioxetine Hydrobromide [Trintellix] 10 mg PO DAILY 04/20/20 [History] oxyCODONE HCl/Acetaminophen [Percocet 10-325 mg Tablet] 1 tab PO Q6HR PRN 04/20/20 [History] traZODone HCl [Trazodone HCl] 100 mg PO BEDTIME 04/20/20 [History] Gabapentin [Neurontin] 1 cap PO Q8H #21 cap 04/23/20 [Rx] Past Medical History HEENT History: Reports: Hard of Hearing, Impaired Vision (wears glasses) Cardiovascular History: Reports: High Cholesterol Respiratory History: Reports: COPD (PFT-proven), Sleep Apnea (untreated) Musculoskeletal History: Reports: Osteoarthritis Neurological History: Reports: CVA (cereballar, 09/26/2018, 10/03/2018, 10/12/2018), Other (See Below) (Essential tremor) Psychiatric History: Reports: Depression, Other (See Below) (Fibromyalgia) Endocrine/Metabolic History: Reports: Obesity/BMI 30+ - Infectious Disease History Infectious Disease History: Reports: Influenza - Past Surgical History HEENT Surgical History: Reports: Cataract Surgery (bilateral), Tonsillectomy GI Surgical History: Reports: Appendectomy, Cholecystectomy (around 1999) Female Surgical History: Reports: Hysterectomy (complete) Musculoskeletal Surgical History: Reports: Ganglion Cyst (right wrist), Other (See Below) (Numerous bilateral wrist surgeries) Social & Family History - Tobacco Use Tobacco Use Status *Q: Current Every Day Tobacco User Years of Tobacco use: 45 Packs/Tins Daily: 1 Tobacco Use Comment: Since 20 yrs old - Caffeine Use Caffeine Use: Reports: Soda, Tea Other Caffeine Use: 3-4 diet pepsi's per day - Alcohol Use Alcohol Use History: No - Recreational Drug Use Recreational Drug Use: No - Living Situation & Occupation Living situation: Reports: , with Spouse Occupation: Disabled ED ROS GENERAL - Review of Systems Review Of Systems: Comprehensive ROS is negative, except as noted in HPI. ED EXAM,LOWER BACK PAIN/INJURY - Physical Exam Exam: See Below Exam Limited By: No Limitations General Appearance: Alert, WD/WN, Mild Distress (appears uncomfortable) Eye Exam: Bilateral Eye: EOMI, Normal Inspection Ears: Normal External Exam, Hearing Loss Nose: Normal Inspection Throat/Mouth: Normal Inspection, Normal Lips, Normal Voice, No Airway Compromise Head: Atraumatic, Normocephalic Neck: Normal Inspection, Full Range of Motion Respiratory/Chest: No Respiratory Distress, Lungs Clear, Normal Breath Sounds, No Accessory Muscle Use Cardiovascular: Normal Peripheral Pulses, Regular Rate, Rhythm, No Gallop, No JVD, No Murmur, No Rub GI/Abdominal: Normal Bowel Sounds, Soft, Non-Tender, No Organomegaly, No Distention, No Abnormal Bruit, No Mass Back Exam: Normal Inspection, Full Range of Motion Extremities: Normal Range of Motion, Normal Capillary Refill, Other (No visible abnormality to the right lower extremity, when compared to the left, such as swelling, erythema, ecchymosis, or abrasion. The patient reports heightened sensitivity to palpation of the skin.) Neurological: Alert, No Motor/Sensory Deficits, Oriented x 3 Psychiatric: Anxious Skin Exam: Warm, Dry, Intact, Normal Color, No Rash Course - Vital Signs Last Recorded V/S: Last Vital Signs Temp 36.0 C L 04/22/20 21:58 Pulse 70 04/22/20 21:58 Resp 16 04/22/20 21:58 BP 167/101 H 04/22/20 21:58 Pulse Ox 99 04/22/20 21:58 - Orders/Labs/Meds Labs: Laboratory Tests 04/22/20 04/22/20 Range/Units 23:07 23:07 WBC 12.24 H (3.98-10.04) K/mm3 RBC 4.91 (3.98-5.22) M/mm3 Hgb 15.0 (11.2-15.7) gm/dl Hct 44.9 (34.1-44.9) % MCV 91.4 (79.4-94.8) fl MCH 30.5 (25.6-32.2) pg MCHC 33.4 (32.2-35.5) g/dl RDW Std Deviation 50.7 H (36.4-46.3) fL Plt Count 213 (182-369) K/mm3 MPV 9.0 L (9.4-12.3) fl Neutrophils % (Manual) 74 H (40-60) % Band Neutrophils % 0 (0-10) % Lymphocytes % (Manual) 20 (20-40) % Atypical Lymphs % 0 % Monocytes % (Manual) 5 (2-10) % Eosinophils % (Manual) 1 (0.7-5.8) % Basophils % (Manual) 0 L (0.1-1.2) Platelet Estimate Adequate RBC Morph Comment Normal Sodium 142 (136-145) mEq/L Potassium 3.6 (3.5-5.1) mEq/L Chloride 106 (98-107) mEq/L Carbon Dioxide 21 (21-32) mEq/L Anion Gap 18.6 H (5-15) BUN 23 H (7-18) mg/dL Creatinine 1.0 (0.55-1.02) mg/dL Est Cr Clr Drug Dosing TNP Estimated GFR (MDRD) 56 (>60) mL/min BUN/Creatinine Ratio 23.0 H (14-18) Glucose 107 (80-115) mg/dL Calcium 8.9 (8.5-10.1) mg/dL Magnesium 2.3 (1.8-2.4) mg/dl Total Bilirubin 0.5 (0.2-1.0) mg/dL AST 17 (15-37) U/L ALT 24 (14-59) U/L Alkaline Phosphatase 88 (46-116) U/L Total Protein 6.8 (6.4-8.2) g/dl Albumin 3.4 (3.4-5.0) g/dl Globulin 3.4 gm/dL Albumin/Globulin Ratio 1.0 (1-2) Meds: Medications Discontinued Medications Generic Name Dose Route Start Last Admin Trade Name Freq PRN Reason Stop Dose Admin Gabapentin 300 mg 04/22/20 22:47 04/22/20 23:23 Gabapentin 300 Mg Cap PO 04/22/20 22:48 300 mg ONETIME ONE Administration Hydromorphone HCl 1 mg 04/22/20 22:45 04/22/20 23:09 Hydromorphone 1 Mg/Ml Syringe IVPUSH 04/22/20 22:46 1 mg ONETIME ONE Administration Sodium Chloride 1,000 mls @ 999 mls/hr 04/22/20 22:45 04/22/20 23:09 Normal Saline IV 04/22/20 23:45 999 mls/hr ONETIME ONE Administration Ondansetron HCl 4 mg 04/22/20 22:45 04/22/20 23:09 Ondansetron 4 Mg/2 Ml Sdv IVPUSH 04/22/20 22:46 4 mg ONETIME ONE Administration - Re-Assessments/Exams Free Text/Narrative Re-Assessment/Exam: 04/22/20 22:48 As above, the patient states that she has had lower right back pain radiating down the entirety of her right lower extremity for the past 5 to 6 years, that has been getting worse, thought due to a herniated L5-S1 intervertebral disc. She was seen in this ED 2 nights ago, given 2 mg of IV Dilaudid and 10 mg of IM dexamethasone, then discharged home with the recommendation that she follow-up with her pain national account manager. She states that she did, and that while Dr. Stewart wanted to increase her opioids, her pain national account manager canceled that plan. By the history the patient provided, I suspect that she has a history of opioid abuse. Her medical records indicate that she is on gabapentin, although she states that she has not been on that for several years, and that it had been prescribed at the time for insomnia and restless leg syndrome. I suggested that we restart her on that, and that for today's purposes, I can give her a small amount of Dilaudid, along with some IV Zofran and IV fluid. The patient is agreeable. Because her reports that she has not eaten for several days, I will check some blood work, to make sure that there are no significant fluid or electrolyte shifts that need to be corrected. 04/22/20 23:30 I reviewed the patient's [place] NET DEVELOPMENT MANAGER, finding that she was on gabapentin 300 mg po TID as prescribed by Dr. Stewart, not Dr. Gardner, with the last prescription being filled on 09/18/2019, not several years ago. I am concerned that there may have been some reason why she was taken off of it. 04/23/20 00:12 The patient's CBC is remarkable for slight leukocytosis of 12.24, but with 0% bandemia, and the remainder of her CBC being unremarkable. Her CMP is remarkable for an anion gap mildly elevated at 18.6, but with a bicarbonate normal at 21. Her BUN is elevated at 23, but her Cr is within normal limits at 1.0, and the remainder of her CMP being unremarkable. Her magnesium level is within normal limits at 2.3. 04/23/20 00:18 Test results discussed with the patient and her . As above, there are no significant electrolyte abnormalities that need to be addressed. She states that she feels somewhat better following the IV Dilaudid and oral gabapentin. I will submit a prescription for gabapentin for 7 days, but she will need to follow-up with Dr. Stewart or her pain national account manager to see if they want her to remain on it. The patient expressed understanding and gratitude for what was done tonight. Departure - Departure Time of Disposition: 00:20 Disposition: Home, Self-Care 01 Condition: Good Clinical Impression: Chronic right-sided lumbar radiculopathy - Discharge Information *PRESCRIPTION DRUG MONITORING PROGRAM REVIEWED*: Not Applicable *COPY OF PRESCRIPTION DRUG MONITORING REPORT IN PATIENT ANTHONY: Not Applicable Prescriptions: Gabapentin [Neurontin] 1 cap PO Q8H #21 cap Instructions: Lumbosacral Radiculopathy Referrals: Alon Stewart MD [Primary Care Provider] - Free,Shannan Humphries MD [Ordering Only Provider] - Garret Smith DO [Physician] - Forms: ED Department Discharge Additional Instructions: You were seen in the emergency room for continued chronic lower right back pain radiating down your entire right lower extremity. Work-up in the ER included several blood tests, which returned unremarkable. Based on your history and physical examination, your lower back and right lower extremity pain are due to lumbar radiculopathy. You had some relief of pain following IV Dilaudid, IV Zofran, and IV fluid. You have been started on the anti-nerve pain medicine gabapentin, and a prescription for gabapentin has been provided to you. Take 1 tablet of gabapentin every 8 hours, as prescribed. Because you were on gabapentin previously, and that was discontinued, it is not clear that your physicians would agree with you being on it again. Please follow-up with your PCP, Dr. Alon Stewart, or your pain national account manager, Marifer Grayson NP, to see if they agree with you being on gabapentin. If so, they can prescribe you additional. If any other problems, please do not hesitate to return to the ER. Sepsis Event Note (ED) - Evaluation Sepsis Screening Result: No Definite Risk - Focused Exam Vital Signs: Vital Signs Temp Pulse Resp BP Pulse Ox 04/22/20 21:58 36.0 C L 70 16 167/101 H 99
== END 2020-04-23 00:40 | disposition home or self-care (01) ==
LOC: JD.ED 21:37
DX: M54.16 Radiculopathy, lumbar region (principal); E78.00 Pure hypercholesterolemia, unspecified; J44.9 Chronic obstructive pulmonary disease, unspecified; M19.90 Unspecified osteoarthritis, unspecified site; E66.9 Obesity, unspecified; Z72.0 Tobacco use; Z88.5 Allergy status to narcotic agent; Z79.82 Long term (current) use of aspirin; Z79.899 Other long term (current) drug therapy
CPT/HCPCS: 36415; 80053; 83735; 85007; 85027; 96374; 96375; 99283; A9270; J1170; J2405; J7030; 99284

== ENCOUNTER 2024-03-26 11:55 | Emergency (ER) | payer MEDICARE, OTHER ==
[2024-03-26] MEDS: Acetaminophen/oxyCODONE 325-5 MG Tab PO ONE (13:30)
[2024-03-26 14:24] VITALS: BP 138/59; PULSE 79
== END 2024-03-26 14:15 | disposition home or self-care (01) ==
LOC: JD.ED 11:55
DX: S82.62XA Displaced fracture of lateral malleolus of left fibula, initial encounter for closed fracture (principal); M25.541 Pain in joints of right hand; E78.00 Pure hypercholesterolemia, unspecified; J44.9 Chronic obstructive pulmonary disease, unspecified; E11.21 Type 2 diabetes mellitus with diabetic nephropathy; E66.9 Obesity, unspecified; M19.90 Unspecified osteoarthritis, unspecified site; F17.210 Nicotine dependence, cigarettes, uncomplicated; Z68.39 Body mass index [BMI] 39.0-39.9, adult; Z86.73 Personal history of transient ischemic attack (TIA), and cerebral infarction without residual deficits; Z90.49 Acquired absence of other specified parts of digestive tract; Z90.710 Acquired absence of both cervix and uterus; Z88.5 Allergy status to narcotic agent; Z79.82 Long term (current) use of aspirin; Z79.51 Long term (current) use of inhaled steroids; Z79.899 Other long term (current) drug therapy; W01.198A Fall on same level from slipping, tripping and stumbling with subsequent striking against other object, initial encounter
CPT/HCPCS: 29125; 73110; 73130; 73610; 99283; A9270

== ENCOUNTER 2024-07-19 13:22 | Emergency (ER) | payer MEDICARE, OTHER ==
[2024-07-19 13:36] VITALS: BP 153/81; PULSE 98
[2024-07-19] MEDS: HYDROmorphone 0.5 MG/0.5 ML Syringe IVPUSH ONE (14:22)
[2024-07-19] MEDS: Ondansetron 4 MG/2 ML SDV IVPUSH ONE (14:22)
[2024-07-19] MEDS: Sodium Chloride 0.9% 10 ML Syringe FLUSH PRN (14:23)
[2024-07-19] MEDS: Ketorolac 30 MG/ML SDV IVPUSH ONE (15:53)
== END 2024-07-19 16:32 | disposition home or self-care (01) ==
LOC: JD.ED 13:22
DX: S70.02XA Contusion of left hip, initial encounter (principal); E66.9 Obesity, unspecified; Z88.8 Allergy status to other drugs, medicaments and biological substances; Z79.82 Long term (current) use of aspirin; Z79.899 Other long term (current) drug therapy; Z90.49 Acquired absence of other specified parts of digestive tract; Z90.710 Acquired absence of both cervix and uterus; Z68.37 Body mass index [BMI] 37.0-37.9, adult; W13.3XXA Fall through floor, initial encounter
CPT/HCPCS: 73502; 96374; 96375; 99283; J1885; J2405

== ENCOUNTER 2024-08-20 09:03 | Day surgery (SDC) | payer MEDICARE, OTHER ==
[~2024-08-20 09:03] MED LIST: Sodium Chloride 0.9% 10 ML Syringe FLUSH PRN; Sodium Chloride 0.9% 10 ML Syringe FLUSH SCH
[2024-08-20] MEDS ORDERED: Propofol 200 MG/20 ML SDV ONE ×4 (09:33→11:38)
[2024-08-20] MEDS ORDERED: Lidocaine 1% 4 ML ONE (09:33)
[2024-08-20] MEDS: Lactated Ringers 1,000 ML IV SCH (09:40)
[2024-08-20] MEDS ORDERED: Ondansetron 4 MG/2 ML SDV ONE (09:57)
[2024-08-20 13:16] VITALS: PULSE 82
[2024-08-20 13:30] VITALS: BP 135/78
== END 2024-08-20 13:10 | disposition home or self-care (01) ==
LOC: JD.SDS 09:03
PROVIDERS: ATTEND Surgery
DX: Z12.11 Encounter for screening for malignant neoplasm of colon (principal); R19.5 Other fecal abnormalities; D12.3 Benign neoplasm of transverse colon; D12.4 Benign neoplasm of descending colon; D12.2 Benign neoplasm of ascending colon; K63.5 Polyp of colon; D12.0 Benign neoplasm of cecum; K57.30 Diverticulosis of large intestine without perforation or abscess without bleeding; K64.8 Other hemorrhoids; J44.9 Chronic obstructive pulmonary disease, unspecified; E03.9 Hypothyroidism, unspecified; E78.5 Hyperlipidemia, unspecified; E66.811 Obesity, class 1; F41.8 Other specified anxiety disorders; Z88.5 Allergy status to narcotic agent; Z88.8 Allergy status to other drugs, medicaments and biological substances; F17.210 Nicotine dependence, cigarettes, uncomplicated; Z79.4 Long term (current) use of insulin; Z79.899 Other long term (current) drug therapy
CPT/HCPCS: 45380; 45385; 88305; A9270; J2003; J2405; J2704; J7120; 00811